=== PATIENT | female | born 1980 | race African-American/Black ===

== ENCOUNTER 2016-07-27 00:15 | Emergency (ER) | payer SELFPAY ==
[~2016-07-27] VITALS: Ht 170.2 cm; Wt 68.0 kg
[2016-07-27 01:23] LABS: BASOPHILS % 0.6 % (0.0-2.0); EOSINOPHILS % 3.4 % (0.0-5.0); HEMATOCRIT. 34.6 % (36.0-48.0); HEMOGLOBIN. 11.4 g/dL (12.0-16.0); LYMPHOCYTES % 33.7 % (20.0-50.0); MEAN CORPUSCULAR HEMOGLOBIN 28.7 pg (28.0-32.0); MEAN PLATELET VOLUME 9.4 fl (7.4-10.4); MONOCYTES % 6.8 % (2.0-8.0); NEUTROPHILS % 55.5 % (40.0-76.0); PLATELET 175 x1000/uL (130-400); RED BLOOD CELL COUNT 3.97 mill/uL (4.2-5.4); RED CELL DISTRIBUTION WIDTH 15.2 % (11.6-14.6)
[2016-07-27 01:29] LABS: HCG SCREEN NEGATIVE
[2016-07-27 01:32] LABS: D-DIMER 0.41 mg/L FEU (<0.50); PROTHROMBIN TIME 10.7 sec
[2016-07-27 01:37] LABS: CARBON DIOXIDE 30 mEq/L (21-32); CHLORIDE 105 mEq/L (98-107); TROPONIN I < 0.02 ng/mL (0.00-0.04)
[2016-07-27 02:03] VITALS: BP 120/64
== END 2016-07-27 02:12 | disposition home or self-care (01) ==
LOC: ER 00:16
DX: R07.89 Other chest pain (principal); R06.02 Shortness of breath; R03.0 Elevated blood-pressure reading, without diagnosis of hypertension; F17.210 Nicotine dependence, cigarettes, uncomplicated; Z71.6 Tobacco abuse counseling; F12.10 Cannabis abuse, uncomplicated
CPT/HCPCS: 36415; 71010; 80053; 81025; 84484; 84703; 85025; 85379; 85610; 85730; 93005; 99285; 99406

== ENCOUNTER 2016-09-09 12:28 | Emergency (ER) | payer SELFPAY ==
[~2016-09-09] VITALS: Ht 167.6 cm; Wt 59.2 kg
[2016-09-09] MEDS ORDERED: ONDANSETRON HCL 4MG/2ML VIAL IV STA (14:44)
[2016-09-09] MEDS ORDERED: SODIUM CHLORIDE 0.9% 1,000 ML IV ONE (14:44)
[2016-09-09 15:40] LABS: BASOPHILS % 0.7 % (0.0-2.0); EOSINOPHILS % 0.2 % (0.0-5.0); HEMATOCRIT. 35.6 % (36.0-48.0); HEMOGLOBIN. 11.9 g/dL (12.0-16.0); LYMPHOCYTES % 17.8 % (20.0-50.0); MEAN CORPUSCULAR VOLUME 86.8 fL (81.0-99.0); MEAN PLATELET VOLUME 9.2 fl (7.4-10.4); MONOCYTES % 3.4 % (2.0-8.0); NEUTROPHILS % 77.9 % (40.0-76.0); PLATELET 167 x1000/uL (130-400); RED CELL DISTRIBUTION WIDTH 14.2 % (11.6-14.6)
[2016-09-09 15:43] LABS: CHLORIDE 104 mEq/L (98-107)
[2016-09-09 15:48] LABS: CARBON DIOXIDE 24 mEq/L (21-32)
[2016-09-09 15:53] LABS: CLARITY URINE CLEAR (CLEAR); COLOR URINE YELLOW (YELLOW); GLUCOSE URINE NEGATIVE (NEGATIVE); KETONES URINE 4+ (NEGATIVE); LEUKOCYTE ESTERASE URINE NEGATIVE (NEGATIVE); NITRITE URINE NEGATIVE (NEGATIVE); OCCULT BLOOD URINE NEGATIVE (NEGATIVE); PH URINE 5.5 (4.5-8.0); PROTEIN URINE TRACE (NEGATIVE); SPECIFIC GRAVITY URINE 1.031 (1.005-1.030)
[2016-09-09] MEDS ORDERED: SODIUM CHLORIDE 0.9% 500 ML IV ONE (16:00)
[2016-09-09 17:30] VITALS: BP 115/59
[2016-09-09] MEDS ORDERED: METOCLOPRAMIDE HCL 10MG/2ML VIAL IV ONE (17:30)
== END 2016-09-09 17:59 | disposition home or self-care (01) ==
LOC: ER 14:16
DX: E86.0 Dehydration (principal); R11.2 Nausea with vomiting, unspecified; F12.10 Cannabis abuse, uncomplicated; D64.9 Anemia, unspecified; Z88.5 Allergy status to narcotic agent
CPT/HCPCS: 36415; 80053; 81001; 81025; 85025; 96361; 96374; 96375; 99284; J2405; J2765; J7030; J7040; Z7610